=== PATIENT | male | born 1955 | race Two or more races ===

== ENCOUNTER 2022-05-14 19:09 | Inpatient (IN) | payer MEDICARE, OTHER ==
[~2022-05-14] VITALS: Ht 172.7 cm; Wt 57.2 kg
--- NOTE | 2022-05-14 19:16 | NUR ---
darren, from con home, R eye hematoma s/p fall R elbow lac. Neurocheck donel; LOC WNL A/OX3. Tolerating R/A well with no SOB. Connected pt to POX and monitor. Safety measures in place.
--- NOTE | 2022-05-14 19:46 | NUR ---
POC BS CHECK 220; DR ZHU AWARE
--- NOTE | 2022-05-14 19:50 | NUR ---
PT TAKEN TO CT. COVID ANTIGENS SWAB COLLECTED AND SENT TO LAB
--- NOTE | 2022-05-14 20:42 | NUR ---
LAC #18G S/L BLOOD COLLECTED AND SENT TO LAB
[2022-05-14 20:47] LABS: BASOPHILS # (AUTO) 0.1 K/uL (0.0-0.2); BASOPHILS % (AUTO) 0.7 % (0.0-2.0); EOSINOPHILS % (AUTO) 2.4 % (0.0-6.0); HEMATOCRIT 42 % (39-51); HEMOGLOBIN 14.2 g/dL (13.5-17.5); LYMPHOCYTES # (AUTO) 3.2 K/uL (0.8-4.8); LYMPHOCYTES % (AUTO) 36.2 % (20.0-44.0); MEAN CORPUSCULAR HGB CONC 34 g/dl (31.0-36.0); MEAN CORPUSCULAR VOLUME 87 fL (80-96); MONOCYTES # (AUTO) 0.6 K/uL (0.1-1.30); MONOCYTES % (AUTO) 7.1 % (2.0-12.0); NEUTROPHILS # (AUTO) 4.7 K/uL (1.8-8.9); NEUTROPHILS % (AUTO) 53.6 % (43.0-81.0); PLATELET COUNT (AUTO) 186 K/uL (150-450); RED BLOOD CELL COUNT(AUTO) 4.82 MIL/uL (4.5-6.0); WHITE BLOOD COUNT (AUTO) 8.7 K/uL (4.3-11.0)
[2022-05-14 21:08] LABS: CALCIUM, SERUM 9.5 mg/dL (8.5-10.1); CREATININE 1.2 mg/dL (0.6-1.3); POTASSIUM 3.9 mmol/L (3.5-5.1)
[2022-05-14 21:14] LABS: ALBUMIN 3.2 g/dL (3.4-5.0); BILIRUBIN,DIRECT 0.1 mg/dL (0.0-0.2); BILIRUBIN,TOTAL 0.2 mg/dL (0.2-1.0); TOTAL PROTEIN, SERUM 6.6 g/dL (6.4-8.2)
--- NOTE | 2022-05-14 21:31 | NUR ---
PT TAKEN TO CT VIA [facility]
[2022-05-14] MEDS ORDERED: IOHEXOL-300 100 ML VIAL IV ONE (21:36)
[2022-05-14] MEDS ORDERED: IV NS 0.9% 250 ML IV ONE (21:37)
[2022-05-14] MEDS ORDERED: CT SWABBABLE VALVE TRANS SET 1 EA INFUS.SET MC ONE (21:37)
--- NOTE | 2022-05-14 23:06 | NUR ---
FACESHEET AND CLINICALS FAXED TO [facility].
[2022-05-15] MEDS ORDERED: ACETAMINOPHEN 325 MG TABLET PO ONE (00:30)
[2022-05-15] MEDS ORDERED: IV NS 0.9% 1,000 ML IV ONE (00:30)
[2022-05-15] MEDS ORDERED: TDAP [DIPH/PERTUSSIS/TET] 0.5 ML VIAL IM ONE (00:30)
--- NOTE | 2022-05-15 04:22 | NUR ---
RECEIVED VERBAL AUTH FROM [facility] AT [facility] TO ADMIT THE PATIENT
[2022-05-15] MEDS ORDERED: INSU100V10 SQ (04:23)
[2022-05-15] MEDS ORDERED: HYDR-4303 PO (04:33)
[2022-05-15] MEDS ORDERED: ASPI-1169 PO (04:33)
[2022-05-15] MEDS ORDERED: ATOR40TA PO (04:33)
[2022-05-15] MEDS ORDERED: LISI40TA13 PO (04:33)
[2022-05-15] MEDS ORDERED: [UNRECOGNIZED DRUG - CODE] SQ (04:33)
[2022-05-15] MEDS ORDERED: INSU100V11 SQ (04:33)
--- NOTE | 2022-05-15 04:38 | NUR ---
DR. SIDDIQUI ON PHONE CALL WITH DR. CAREY REGARDING ADMISSION
[2022-05-15] MEDS ORDERED: *INSULIN REGULAR(HUMULIN R)HUM 100 UNIT/ML VIAL SQ PRN (05:00)
[2022-05-15] MEDS ORDERED: DEXTROSE 50%-WATER 50 ML DISP.SYRIN IV PRN (05:00)
[2022-05-15] MEDS ORDERED: HYDROCODONE/APAP 5/325MG TABLET PO PRN (05:00)
[2022-05-15] MEDS ORDERED: ACETAMINOPHEN 325 MG TABLET PO PRN (05:00)
[2022-05-15 05:20] LABS: BASOPHILS # (AUTO) 0.1 K/uL (0.0-0.2); BASOPHILS % (AUTO) 0.8 % (0.0-2.0); EOSINOPHILS % (AUTO) 3.1 % (0.0-6.0); HEMATOCRIT 42 % (39-51); HEMOGLOBIN 13.9 g/dL (13.5-17.5); LYMPHOCYTES # (AUTO) 2.7 K/uL (0.8-4.8); LYMPHOCYTES % (AUTO) 37.1 % (20.0-44.0); MEAN CORPUSCULAR HGB CONC 33 g/dl (31.0-36.0); MEAN CORPUSCULAR VOLUME 87 fL (80-96); MONOCYTES # (AUTO) 0.4 K/uL (0.1-1.30); MONOCYTES % (AUTO) 5.2 % (2.0-12.0); NEUTROPHILS # (AUTO) 3.9 K/uL (1.8-8.9); NEUTROPHILS % (AUTO) 53.8 % (43.0-81.0); PLATELET COUNT (AUTO) 162 K/uL (150-450); WHITE BLOOD COUNT (AUTO) 7.3 K/uL (4.3-11.0)
[2022-05-15 05:31] LABS: CALCIUM, SERUM 8.8 mg/dL (8.5-10.1); POTASSIUM 4.3 mmol/L (3.5-5.1)
[2022-05-15 05:46] LABS: THYROID STIMULATING HORMONE 0.593 uIU/mL (0.358-3.74)
[2022-05-15] MEDS ORDERED: ACET-868 PO (07:23)
--- NOTE | 2022-05-15 07:35 | NUR ---
hand off from DARCI GATES PT AWAKE AND ALERT FALLOW COMMAND
--- NOTE | 2022-05-15 08:20 | NUR ---
REPORT GIVEN TO MAI GATES FOR [facility]
[2022-05-15] MEDS: BLOOD SUGAR DIAGNOSTIC 1 EACH STRIP VI SCH ×4 (08:22→21:54)
--- NOTE | 2022-05-15 08:25 | NUR ---
RN NOTES RECEIVED PATIENT VIA GURNEY FROM ED DEPT. PATIENT IS AWAKE, ALERT/ORIENTED X2 WITH PERIODS OF CONFUSION WITH ADMITTING DX OF SYNCOPE. PATIENT ON ROOM AIR, TOLERATING WELL. BREATHING EVEN AND UNLABORED. NO SIGNS OF RESPIRATORY DISTRESS NOTED AT THE TIME. NO C/O OF PAIN/DISCOMFORT AT THE TIME. IV ACCESS NOTED ON LAC #18G, PATENT AND INTACT. NO SIGNS OF INFILTRATIONS NOTED AT THE TIME. ALL SAFETY MEASURES IN PLACE. BED LOCKED AND IN LOWEST POSITION WITH CALL LIGHT WITHIN REACH, BED ALARM ON AND SIDE RAILS UP X 2. WILL CONTINUE TO MONITOR AND REASSESS FOR ANY CHANGES DURING SHIFT.
[2022-05-15] MEDS: ASPIRIN 81 MG TAB.CHEW PO SCH (09:37)
[2022-05-15] MEDS: LISINOPRIL (20MG) 20 MG TABLET PO SCH (09:37)
[2022-05-15] MEDS: HEPARIN SODIUM, PORCINE 5000 UNITS/1 ML VIAL SQ SCH ×2 (09:39→18:06)
[2022-05-15] MEDS: INSULIN GLARGINE, 100 UNIT/ML CARTRIDGE SQ SCH (09:40)
--- NOTE | 2022-05-15 11:45 | NUR ---
RN NOTE PATIENT PULLED OUT IV ACCESS ON LAC, NOTED WITH MINIMAL BLEEDING. WAS ABLE TO REINSERT IV ACCESS ON LEFT FOREARM #20G, PATENT AND INTACT, FLUSHING WELL. ALL NEEDS ANTICIPATED.
[2022-05-15 12:00] VITALS: BP 168/87
--- NOTE | 2022-05-15 12:25 | NUR ---
SS consult requested for family information and living status. SW will follow up at a later time.
[2022-05-15] MEDS: INSULIN REGULAR, HUMAN 100 UNIT/ML 3 ML VIAL SQ PRN ×2 (12:28→18:07)
[2022-05-15 16:00] VITALS: BP 144/83
--- NOTE | 2022-05-15 16:15 | NUR ---
RN NOTES RECEIVED PHONE CALL FROM [facility]. PER KRISTEN PLEASE CALL THEM BACK FOR ANY UPDATES ON PATIENT .
--- NOTE | 2022-05-15 19:32 | NUR ---
RN CLOSING NOTES NO SIGNIFICANT CHANGES IN PATIENT CONDITION THROUGHOUT SHIFT. PATIENT IN BED AWAKE, ALERT/ORIENTED X2 WITH PERIODS OF CONFUSION. PATIENT ON ROOM AIR, TOLERATING WELL. BREATHING EVEN AND UNLABORED. NO SIGNS OF RESPIRATORY DISTRESS NOTED AT THE TIME. NO C/O OF PAIN/DISCOMFORT AT THE TIME. IV ACCESS ON LFA #20G PATENT AND INTACT. NO SIGNS OF INFILTRATIONS NOTED AT THE TIME. ALL DUE MEDS GIVEN ORDERED. KEPT PATIENT CLEAN DRY AND COMFORTABLE. ALL NEEDS ANTICIPATED. ALL SAFETY MEASURES IN PLACE. BED LOCKED AND IN LOWEST POSITION WITH CALL LIGHT WITHIN REACH, BED ALARM ON AND SIDE RAILS UP X 2. ENDORSED TO NEWS VIDEO EDITOR NURSE FOR CONTINUITY OF CARE.
[2022-05-15 20:00] VITALS: BP 142/80
[2022-05-15] MEDS ORDERED: ATORVASTATIN 40 MG TABLET PO SCH (22:00)
[2022-05-16] VITALS: BP 135/66
[2022-05-16 04:00] VITALS: BP 129/70
[2022-05-16 06:41] LABS: BASOPHILS % (AUTO) 0.5 % (0.0-2.0); HEMATOCRIT 42 % (39-51); HEMOGLOBIN 14.1 g/dL (13.5-17.5); LYMPHOCYTES # (AUTO) 2.8 K/uL (0.8-4.8); LYMPHOCYTES % (AUTO) 35.4 % (20.0-44.0); MEAN CORPUSCULAR HGB CONC 34 g/dl (31.0-36.0); MEAN CORPUSCULAR VOLUME 85 fL (80-96); MONOCYTES # (AUTO) 0.5 K/uL (0.1-1.30); MONOCYTES % (AUTO) 5.8 % (2.0-12.0); NEUTROPHILS # (AUTO) 4.4 K/uL (1.8-8.9); NEUTROPHILS % (AUTO) 55.3 % (43.0-81.0); PLATELET COUNT (AUTO) 184 K/uL (150-450); RED BLOOD CELL COUNT(AUTO) 4.87 MIL/uL (4.5-6.0); WHITE BLOOD COUNT (AUTO) 7.9 K/uL (4.3-11.0)
--- NOTE | 2022-05-16 06:46 | NUR ---
RN CLOSING NOTE PATIENT RESTING IN BED. A/OX1-2. TOLERATING ROOM AIR. NO RESPIRATORY DISTRESS. NO COMPLAINTS OF PAIN. SINUS RHYTHM ON THE MONITOR. BED IS LOW AND LOCKED, HOB ELEVATED IN SEMI FOWLERS, SIDE RAILS UP, CALL LIGHT WITHIN REACH. PENDING ECHO RESULTS AND SW CONS.
--- NOTE | 2022-05-16 07:28 | NUR ---
RN OPENING NOTE PATIENT RESTING IN BED. A/OX1-2. TOLERATING ROOM AIR. NO RESPIRATORY DISTRESS. NO COMPLAINTS OF PAIN. SINUS RHYTHM ON THE MONITOR. SAFETY MEASURES IN PLACE. BED IS LOW AND LOCKED, HOB ELEVATED IN SEMI FOWLERS, SIDE RAILS UP, CALL LIGHT WITHIN REACH. WILL CONTINUE TO MONITOR.
[2022-05-16] MEDS: BLOOD SUGAR DIAGNOSTIC 1 EACH STRIP VI SCH ×2 (07:53→11:55)
[2022-05-16 08:00] VITALS: BP 168/96
[2022-05-16 08:01] LABS: CALCIUM, SERUM 9.3 mg/dL (8.5-10.1); CREATININE 0.8 mg/dL (0.6-1.3); POTASSIUM 4.3 mmol/L (3.5-5.1)
[2022-05-16] MEDS: ASPIRIN 81 MG TAB.CHEW PO SCH (08:11)
[2022-05-16] MEDS: LISINOPRIL (20MG) 20 MG TABLET PO SCH (08:12)
[2022-05-16] MEDS: HEPARIN SODIUM, PORCINE 5000 UNITS/1 ML VIAL SQ SCH (08:13)
[2022-05-16] MEDS: INSULIN GLARGINE, 100 UNIT/ML CARTRIDGE SQ SCH (08:23)
[2022-05-16] MEDS: INSULIN REGULAR, HUMAN 100 UNIT/ML 3 ML VIAL SQ PRN ×2 (08:25→11:57)
[2022-05-16] MEDS ORDERED: METF-440 PO (08:28)
--- NOTE | 2022-05-16 08:45 | NUR ---
BP 168/96 CHECKED MANUALLY 175/95. CHARGE NURSE AND MD NOTIFIED. SCHEDULED MEDICATION GIVEN EARLY. WILL CHECK AFTER AN HOUR TO SEE IF PRN MED IS NEEDED ORDERED.
[2022-05-16] MEDS ORDERED: CLONIDINE HCL 0.1 MG TABLET PO ONE (10:00)
[2022-05-16 10:14] VITALS: BP 175/95
--- NOTE | 2022-05-16 10:15 | NUR ---
CLONIDINE HCL 0.1MG GIVEN ORDERED.
--- NOTE | 2022-05-16 10:53 | NUR ---
Responsible alliance party: Per electrical engineering manager, the pt. currently resides at [facility] [[id number], [place] [phone] / [phone]]. Per employee at [facility] (Niurka) there is no family listed. SW will be available as needed.
--- NOTE | 2022-05-16 12:45 | NUR ---
GAVE REPORT TO [facility] RN. REVIEWED DISCHARGE INSTRUCTIONS. PT DISCHARGED VIA GURNEY WITH BELONGINGS, PRESCRIPTION, INSTRUCTIONS. IV AND TELEMETRY DISCONTINUED. PT LEFT HOSPITAL TO SNF.
[2022-05-18] MEDS ORDERED: METFORMIN 500 MG TABLET PO SCH (09:00)
== END 2022-05-16 12:36 | DRG 185 ==
LOC: ER 19:11 → TRANSITION 05-15 04:44 → TELE1 05-15 05:50
PROVIDERS: ADMIT Internal Medicine; ATTEND Internal Medicine
DX: S22.41XA Multiple fractures of ribs, right side, initial encounter for closed fracture (principal); S00.83XA Contusion of other part of head, initial encounter; R55 Syncope and collapse; S09.90XA Unspecified injury of head, initial encounter; W19.XXXA Unspecified fall, initial encounter; Y93.9 Activity, unspecified; I10 Essential (primary) hypertension; E78.5 Hyperlipidemia, unspecified; Z91.19 Patient's noncompliance with other medical treatment and regimen; F03.90 Unspecified dementia, unspecified severity, without behavioral disturbance, psychotic disturbance, mood disturbance, and anxiety; E11.65 Type 2 diabetes mellitus with hyperglycemia; Z79.4 Long term (current) use of insulin; Y92.89 Other specified places as the place of occurrence of the external cause; Z20.822 Contact with and (suspected) exposure to COVID-19
CPT/HCPCS: 36415; 70450-TC; 71045-TC; 71260-TC; 80048-TC; 80076-TC; 82962-TC; 84443-TC; 85025-TC; 87081-TC; 90715; 93307-TC; 93880-TC; 97116-TC; 97530-TC; C9803; G0378; J1644; J1815; J7030; J7050; Q9967